=== PATIENT | female | born 1995 | race Caucasian/White ===

== ENCOUNTER 2018-12-22 21:19 | Emergency (ER) | payer OTHER ==
[~2018-12-22] VITALS: Ht 154.9 cm; Wt 71.6 kg
[2018-12-22 21:27] VITALS: BP 134/83; PULSE 77; RESP 16; Ht 154.9 cm; Wt 71.6 kg
[2018-12-22] MEDS ORDERED: ACETAMINOPHEN 500 MG TAB PO STA (23:11)
[2018-12-22] MEDS ORDERED: SOD CHLORIDE 0.9% 1,000 ML IV STA (23:11)
[2018-12-22] MEDS ORDERED: DIPHENHYDRAMINE 50 MG INJ IV STA (23:11)
[2018-12-22] MEDS ORDERED: ONDANSETRON 4 MG INJ IV STA (23:11)
--- NOTE | 2018-12-22 23:17 | ERD ---
ER Documentation Chief Complaint Chief Complaint Pt reports KHOURY with n/v and sensitivity to light HPI Patient is a 23-year-old female, no past medical history, presents the ER for concerns of a headache which started around 7 PM today. Patient reports previous history of headache however she states current headache is not going away after taking ibuprofen. Patient describes onset to be gradual. Patient denies sudden, 10 out of 10 thunderclap headache. Patient describes the pain to be localized to the left side of her head. Patient reports associated nausea and vomiting. Patient reports vomiting 3-4 times. Patient describes the pain to be pounding, behind her left eye. Patient reports associated photophobia. Patient denies any fevers or chills. Patient denies any neck pain or neck stiffness. Patient denies of falls or trauma. States she did take ibuprofen around 8 PM however that did not help. Patient denies any chest pain or shortn ess of breath. Patient denies any abdominal pain. Patient is currently on her menstrual period. ROS All systems reviewed and are negative except as per history of present illness. Medications Home Meds Active Scripts Acetaminophen* (Tylophen*) 500 Mg Capsule, 1 CAP PO Q6H PRN for PAIN AND OR ELEVATED TEMP, #20 CAP Prov:SHARMILA CHAO PA-C 12/23/18 Allergies Allergies: Coded Allergies: No Known Allergy (Unverified , 12/22/18) PMhx/Soc Medical and Surgical Hx: pt denies Medical Hx, pt denies Surgical Hx Hx Alcohol Use: No Hx Substance Use: No Hx Tobacco Use: No Smoking Status: Never smoker FmHx Family History: No diabetes Physical Exam Vitals Vital Signs Date Temp Pulse Resp B/P (MAP) Pulse Ox O2 O2 Flow FiO2 Time Delivery Rate 12/22/18 97.9 77 16 134/83 98 21:27 (100) Physical Exam GENERAL: Well-developed, well-nourished female. Appears in no acute distress. Speaking in full sentences HEAD: Normocephalic, atraumatic. EYES: Pupils are equally reactive bilaterally. EOMs grossly intact. No conjunctival erythema. ENT: Moist mucous membranes. No uvula deviation. No kissing tonsils. NECK: Supple. No meningismus. Normal range of motion of the neck. LUNG: Clear to auscultation bilaterally. No rhonchi, wheezing, rales or coarse breath sounds. HEART: Regular rate and rhythm. No murmurs, rubs or gallops. EXTREMITIES: Equal pulses bilaterally. No peripheral clubbing, cyanosis or edema. No unilateral leg swelling. NEUROLOGIC: Alert and oriented x3, cooperative. Mood and affect appropriate to situation. Cranial nerves II through XII are grossly intact. Normal speech. Motor exam: 5/5 strength in upper and lower extremities. Sensory exam: Sensation intact to light touch on all four extremities. Cerebellar function exam: Rapid alternating movements intact. No dysmetria on dgbrlw-mp-[id number] and sqyp-ut-imvi test. Steady gait. No pronator drift. Results 24 hrs Laboratory Tests Test 12/22/18 23:01 12/23/18 00:05 POC Beta HCG, Qualitative NEGATIVE Bedside Urine pH (LAB) 5.5 Bedside Urine Protein (LAB) 1+ Bedside Urine Glucose (UA) Negative Bedside Urine Ketones (LAB) Negative Bedside Urine Blood 3+ Bedside Urine Nitrite (LAB) Negative Bedside Urine Leukocyte Esterase (L Negative Current Medications Medications Dose Sig/Teddy Start Time Status Last (Trade) Ordered Route PRN Stop Time Admin Dose Reason Admin Sodium 1,000 ml @ Q1H STAT 12/22/18 DC 12/22/18 Chloride 1,000 mls/hr IV 23:11 23:42 12/23/18 00:10 1,000 mg ONCE STAT 12/22/18 DC 12/22/18 Acetaminophen PO 23:11 23:41 (Tylenol 12/22/18 23:12 Tab) Ondansetron 4 mg ONCE STAT 12/22/18 DC 12/22/18 HCl (Zofran IV 23:11 23:42 Inj) 12/22/18 23:12 25 mg ONCE STAT 12/22/18 DC 12/22/18 Diphenhydrami IV 23:11 23:42 ne HCl 12/22/18 23:12 (Benadryl) Procedures/MDM MEDICAL DECISION MAKING: This is a 23-year-old female presents the ER for concerns of a left-sided headache along with nausea, vomiting and photophobia x4 hours. Vital signs were reviewed. Patient was afebrile. Patient is not hypoxic. Patient stated that the headache was gradual. Patient stated that current headache was similar to headaches in the past. Patient denied any fevers, neck stiffness, jaw claudication, visual changes or LOC. Full neurological exam was normal. Patient was given IV fluids, Benadryl, Zofran and Tylenol. Upon reexamination, patient improvement symptoms. At this time, the patient presentation is most consistent with migraine headache. Low suspicion for intracranial hemorrhage, meningitis, encephalitis, CO poisoning, temporal arteritis, benign intracranial hypertension, intracranial mass, glaucoma, preeclampsia, sinusitis, cluster headache. Patient is nontoxic, non-opening prior to discharge. PRESCRIPTIONS: Tylenol Zofran DISCHARGE: At this time, patient is stable for discharge and outpatient management. I have encouraged the patient to hydrate well. I have instructed the patient to follow- up with his/her primary care physician in 1-2 days. If symptoms persist, patient may need to see a specialist for further examinations and testing. I have instructed the patient to promptly return to the ER at any time for any new or worsening symptoms including increased increased pain, fever, nausea, vomiting, numbness, neck stiffness, visual changes, weakness or LOC. The patient and/or family expressed understanding of and agreement with this plan. All questions were answered. Home care instructions were provided. Disclaimer: Inadvertent spelling and grammatical errors are likely due to EHR/dictation software use and do not reflect on the overall quality of patient care. Also, please note that the electronic time recorded on this note does not necessarily reflect the actual time of the patient encounter. Departure Diagnosis: Primary Impression: Headache Headache type: unspecified Headache chronicity pattern: unspecified pattern Intractability: not intractable Qualified Codes: R51 - Headache Condition: Fair Patient Instructions: Self-Care for Headaches Referrals: [facility] YOU HAVE RECEIVED A MEDICAL SCREENING EXAM AND THE RESULTS INDICATE THAT YOU DO NOT HAVE A CONDITION THAT REQUIRES URGENT TREATMENT IN THE EMERGENCY DEPARTMENT. FURTHER EVALUATION AND TREATMENT OF YOUR CONDITION CAN WAIT UNTIL YOU ARE SEEN IN YOUR DOCTORS OFFICE WITHIN THE NEXT 1-2 DAYS. IT IS YOUR RESPONSIBILITY TO MAKE AN APPOINTMENT FOR FOLOW-UP CARE. IF YOU HAVE A PRIMARY DOCTOR --you should call your primary doctor and schedule an appointment IF YOU DO NOT HAVE A PRIMARY DOCTOR YOU CAN CALL OUR PHYSICIAN REFERRAL HOTLINE AT IF YOU CAN NOT AFFORD TO SEE A PHYSICIAN YOU CAN CHOSE FROM THE FOLLOWING [facility] [address] [facility]. [facility] [address] [facility]. [facility] [address] [facility] [address] [facility] [address] [facility]. [facility] [address] [facility]. [facility] YOU HAVE RECEIVED A MEDICAL SCREENING EXAM AND THE RESULTS INDICATE THAT YOU DO NOT HAVE A CONDITION THAT REQUIRES URGENT TREATMENT IN THE EMERGENCY DEPARTMENT. FURTHER EVALUATION AND TREATMENT OF YOUR CONDITION CAN WAIT UNTIL YOU ARE SEEN IN YOUR DOCTORS OFFICE WITHIN THE NEXT 1-2 DAYS. IT IS YOUR RESPONSIBILITY TO MAKE AN APPOINTMENT FOR FOLOW-UP CARE. IF YOU HAVE A PRIMARY DOCTOR --you should call your primary doctor and schedule and appointment IF YOU DO NOT HAVE A PRIMARY DOCTOR YOU CAN CALL OUR PHYSICIAN REFERRAL HOTLINE AT . IF YOU CAN NOT AFFORD TO SEE A PHYSICIAN YOU CAN CHOSE FROM THE FOLLOWING [facility]: [facility] [address] [place] [address] [facility] [address] [place] [address] LOCATED WITHIN [facility] + [facility] [address] [place] [address] Additional Instructions: Call your primary care doctor TOMORROW for an appointment during the next 1-2 days.See the doctor sooner or return here if your condition worsens before your appointment time. SHARMILA CHAO PA-C Dec 22, 2018 23:17
[2018-12-23] MEDS ORDERED: ACET500C5 PO (00:59)
== END 2018-12-23 01:05 | disposition home or self-care (01) ==
LOC: FTE 21:19
DX: R51 Headache (principal); R11.2 Nausea with vomiting, unspecified
CPT/HCPCS: 81003; 81025; 96374; 96375; J1200; J2405; J7030; Z7502; Z7610

== ENCOUNTER 2019-02-01 10:39 | Emergency (ER) | payer OTHER ==
[~2019-02-01] VITALS: Ht 160 cm; Wt 72.3 kg
[~2019-02-01 10:39] MED LIST: ACET500C5 PO; LORA1TAB PO
[2019-02-01 11:08] VITALS: Ht 160 cm; Wt 72.3 kg
[2019-02-01] MEDS ORDERED: LORAZEPAM 1 MG TAB PO ONE (11:30)
--- NOTE | 2019-02-01 11:31 | ERD ---
ER Documentation Chief Complaint Chief Complaint C/O CHEST PAIN SINCE WOKE UP THIS MORNING. NO ACUTE DISTRESS NOTED. HPI 23-year-old female otherwise healthy presents with chest pain. She states her chest pain is secondary to having panic attack. It started yesterday. She is had panic attacks like this in the past. She has not taken any medications for anxiety in the past. She denies possibility of . She denies any alcohol smoking or drugs. No palpitations or shortness of breath. No cardiac past medical history. ROS All systems reviewed and are negative except as per history of present illness. Medications Home Meds Active Scripts Acetaminophen* (Tylophen*) 500 Mg Capsule, 1 CAP PO Q6H PRN for PAIN AND OR ELEVATED TEMP, #20 CAP Prov:SHARMILA CHAO PA-C 12/23/18 Allergies Allergies: Coded Allergies: No Known Allergy (Unverified , 12/22/18) PMhx/Soc Medical and Surgical Hx: pt denies Medical Hx, pt denies Surgical Hx History of Surgery: No Anesthesia Reaction: No Hx Neurological Disorder: No Hx Respiratory Disorders: No Hx Cardiac Disorders: No Hx Psychiatric Problems: No Hx Miscellaneous Medical Probl: No Hx Alcohol Use: No Hx Substance Use: No Hx Tobacco Use: No Smoking Status: Never smoker FmHx Family History: No diabetes Physical Exam Vitals Vital Signs Date Temp Pulse Resp B/P (MAP) Pulse Ox O2 O2 Flow FiO2 Time Delivery Rate 02/01/19 98.4 87 20 156/82 99 11:08 (106) Physical Exam Const: Anxious Head: Atraumatic Eyes: Normal Conjunctiva ENT: Normal External Ears, Nose and Mouth. Neck: Full range of motion. No meningismus. Resp: Clear to auscultation bilaterally Cardio: Regular rate and rhythm, no murmurs Procedures/MDM Patient has chest pain secondary to panic attack. She has a history of this. Her EKG is normal without any evidence of ST elevation or acute ischemic changes. She is given Ativan here and prescription for small amount of Ativan. She should follow-up with her primary care doctor for better long-term management of her anxiety. Patient counseled regarding my diagnostic impression and care plan. Prior to discharge all questions answered. Pt agrees with treatment plan and understands strict return precautions. Pt is instructed to follow up with primary care provider within 24-48 hours. Precautionary instructions provided including instructions to return to the ER if not improving or for any worsening or changing symptoms or concerns. Departure Diagnosis: Primary Impression: Anxiety Condition: Stable AMY SCOTT PA-C Feb 01, 2019 11:31
[2019-02-01 11:48] VITALS: BP 117/68; PULSE 80; RESP 18
== END 2019-02-01 11:49 | disposition home or self-care (01) ==
LOC: FTE 10:39
DX: F41.9 Anxiety disorder, unspecified (principal)
CPT/HCPCS: 81025; 93005; Z7502; Z7610